=== PATIENT | female | born 1990 | race Caucasian/White ===

== ENCOUNTER 2017-02-04 07:27 | Outpatient (CLI) | payer MEDICAID ==
[~2017-02-04] VITALS: Ht 172.7 cm; Wt 87.7 kg
[~2017-02-04 07:27] MED LIST: ADDERALL30 MG PO; AMOXICILLIN 50500 MG PO; AVAPRO75 MG PO; IMPLANON68 MG ID; LORTAB 5/500 501 TAB PO; MACROBID100 MG PO; NO HOME MEDICATIONS; PRENATAL VITAMI1 TA5 PO
[2017-02-04 07:40] VITALS: BP 124/71; PULSE 104; TEMP 97.7
[2017-02-04] MEDS ORDERED: PRENATAL1 TA7 PO (08:22)
[2017-02-04] MEDS ORDERED: FERROUS SULFATE65 MG PO (08:23)
[2017-02-04 08:41] LABS: PH 6 (5-8); SQUAMOUS EPITHELIAL 0-2 /hpf; URINE APPEARANCE Hazy; URINE BACTERIA None Seen /hpf; URINE BILIRUBIN Negative (NEGATIVE); URINE BLOOD Negative (NEGATIVE); URINE COLOR Yellow; URINE GLUCOSE Negative (NEGATIVE); URINE KETONE Negative (NEGATIVE); URINE UROBILINOGEN Negative (NEGATIVE); URINE WBC 0-2 /hpf
[2017-02-04 09:30] VITALS: BP 128/66; PULSE 94
== END 2017-02-04 09:40 | disposition home or self-care (01) ==
LOC: LDRO 07:27
PROVIDERS: Obstetrics & Gynecology
DX: O47.03 False labor before 37 completed weeks of gestation, third trimester (principal); Z3A.31 31 weeks gestation of pregnancy; Z87.891 Personal history of nicotine dependence

== ENCOUNTER 2017-03-25 15:27 | Inpatient (IN) | payer MEDICAID ==
[2017-03-25] VITALS (19 sets, daily range): BP systolic 104–145; BP diastolic 55–88; PULSE 84–114; TEMP 97.9–98.6
[~2017-03-25] VITALS: Ht 172.7 cm; Wt 95.9 kg
[~2017-03-25 15:27] MED LIST changes: +FERROUS SULFATE65 MG PO; +PRENATAL1 TA7 PO
[2017-03-25 16:43] LABS: BASO % 0.3 % (0.0-2.0); EOS # 0.2 (0.0-0.7); EOS % 1.9 % (0-4.0); GRAN # 6.4 (1.4-6.5); GRAN % 74.1 % (42.2-75.2); HEMATOCRIT 35.1 % (37.0-47.0); HEMOGLOBIN 11.7 g/dl (12.5-16.0); LYMPH # 1.4 (1.2-3.4); LYMPH % 16.3 % (20.0-51.0); MEAN CELL VOLUME 91 fl (80.0-100.0); MEAN CORPUSCULAR HEMOGLOBIN 30 pg (27.0-31.0); MEAN CORPUSCULAR HGB CONC 33 g/dl (33.0-37.0); MEAN PLATELET VOLUME 10.5 fl (7.4-10.4); MONO # 0.6 (0.1-0.6); MONO % 6.9 % (1.7-9.3); PLATELET COUNT 238 K/mm3 (130-400); RED BLOOD COUNT 3.84 M/mm3 (4.10-5.30); REDCELL DISTRIBUTION WIDTH-CV 13.5 % (11.5-14.5); WHITE BLOOD COUNT 8.6 K/mm3 (4.8-10.8)
[2017-03-26 02:00] VITALS: BP 1116/60; PULSE 98; TEMP 98.2
[2017-03-26 10:14] VITALS: BP 122/85; PULSE 94; TEMP 97.8
[2017-03-26 15:52] VITALS: BP 104/69; PULSE 77; TEMP 97.7
[2017-03-26 20:30] VITALS: BP 121/76; PULSE 89; TEMP 98.6
[2017-03-27] MEDS ORDERED: IBU600 MG PO (08:44)
[2017-03-27 09:00] VITALS: BP 127/72; PULSE 94; TEMP 98.1
== END 2017-03-27 12:00 | disposition home or self-care (01) | DRG 775 ==
LOC: LDRO 15:27 → LDR 15:52 → OB 15:52
PROVIDERS: Obstetrics & Gynecology
PROC: 10E0XZZ Delivery of Products of Conception, External Approach (ICD-10-PCS; principal; 2017-03-25)
DX: O42.02 Full-term premature rupture of membranes, onset of labor within 24 hours of rupture (principal); O36.0130 Maternal care for anti-D [Rh] antibodies, third trimester, not applicable or unspecified; Z3A.38 38 weeks gestation of pregnancy; Z37.0 Single live birth
CPT/HCPCS: J2590; J7120

== ENCOUNTER 2018-01-13 14:48 | Emergency (ER) | payer MEDICAID ==
[~2018-01-13] VITALS: Ht 172.7 cm; Wt 86.4 kg
[~2018-01-13 14:48] MED LIST changes: +IBU600 MG PO
[2018-01-13 14:53] VITALS: BP 127/86; TEMP 98
[2018-01-13] MEDS ORDERED: MYDAYIS ER 50 M50 MG PO (14:59)
[2018-01-13] MEDS ORDERED: XANAX 1MG1 MG PO (15:00)
[2018-01-13 15:44] LABS: BASO % 0.4 % (0.0-2.0); EOS # 0.4 (0.0-0.7); EOS % 4.3 % (0-4.0); GRAN # 6.3 (1.4-6.5); GRAN % 69.4 % (42.2-75.2); HEMATOCRIT 41.4 % (37.0-47.0); HEMOGLOBIN 13.8 g/dl (12.5-16.0); LYMPH # 1.8 (1.2-3.4); MEAN CELL VOLUME 93 fl (80.0-100.0); MEAN CORPUSCULAR HEMOGLOBIN 31 pg (27.0-31.0); MEAN CORPUSCULAR HGB CONC 33 g/dl (33.0-37.0); MEAN PLATELET VOLUME 9.7 fl (7.4-10.4); MONO # 0.5 (0.1-0.6); MONO % 5.6 % (1.7-9.3); PLATELET COUNT 244 K/mm3 (130-400); RED BLOOD COUNT 4.44 M/mm3 (4.10-5.30); REDCELL DISTRIBUTION WIDTH-CV 13.7 % (11.5-14.5)
[2018-01-13 15:53] LABS: ACETAMINOPHEN < 10 ug/mL (10-30); ALANINE AMINOTRANSFERASE 26 U/L (9-52); ALBUMIN 4.3 gm/dL (3.5-5.0); ALCOHOL(ethanol),MEDICAL < 10 mg/dL; ALKALINE PHOSPHATASE 59 U/L (50-136); ANION GAP 8 mmol/L (7-16); AST,SGOT 19 U/L (15-37); BILIRUBIN,TOTAL 0.4 mg/dL (0.0-1.0); BLOOD UREA NITROGEN 14 mg/dL (7-17); CALCIUM 8.7 mg/dL (8.4-10.2); CARBON DIOXIDE 25 mmol/L (22-30); CHLORIDE 102 mmol/L (98-107); GLUCOSE 90 mg/dL (74-106); POTASSIUM 4.2 mmol/L (3.4-5.0); SALICYLATE < 1.0 mg/dL; SODIUM 136 mmol/L (137-145); TOTAL PROTEIN 7.5 gm/dL (6.4-8.2)
[2018-01-13 16:20] LABS: TRICYCLIC ANTIDEPRESS URINE NEGATIVE
[2018-01-13 18:45] VITALS: PULSE 96
== END 2018-01-13 18:48 | disposition home or self-care (01) ==
LOC: COL.ER 14:48
PROVIDERS: Emergency Medicine
DX: F32.9 Major depressive disorder, single episode, unspecified (principal); R45.851 Suicidal ideations; F43.10 Post-traumatic stress disorder, unspecified; F98.8 Other specified behavioral and emotional disorders with onset usually occurring in childhood and adolescence; F41.9 Anxiety disorder, unspecified

== ENCOUNTER 2018-05-11 12:49 | Emergency (ER) | payer SELFPAY ==
[~2018-05-11] VITALS: Ht 172.7 cm; Wt 84.1 kg
[~2018-05-11 12:49] MED LIST changes: +MYDAYIS ER 50 M50 MG PO; +XANAX 1MG1 MG PO
[2018-05-11 12:52] VITALS: TEMP 99.3
[2018-05-11] MEDS ORDERED: ADDERALL30 MG PO (13:10)
[2018-05-11] MEDS ORDERED: AMOXICILLIN 50500 MG PO (14:13)
[2018-05-11 14:19] VITALS: BP 114/64; PULSE 118
== END 2018-05-11 14:23 | disposition home or self-care (01) ==
LOC: COL.ER 12:49
DX: J02.0 Streptococcal pharyngitis (principal); F41.9 Anxiety disorder, unspecified; F32.9 Major depressive disorder, single episode, unspecified; F43.10 Post-traumatic stress disorder, unspecified; F98.8 Other specified behavioral and emotional disorders with onset usually occurring in childhood and adolescence; F12.90 Cannabis use, unspecified, uncomplicated; Z87.891 Personal history of nicotine dependence

== ENCOUNTER 2019-03-12 12:20 | Emergency (ER) | payer SELFPAY ==
[~2019-03-12] VITALS: Ht 172.7 cm; Wt 75.0 kg
[2019-03-12 12:49] VITALS: TEMP 97.1
[2019-03-12] MEDS ORDERED: KLONOPIN 1MG1 MG PO (13:37)
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
[2019-03-12] MEDS ORDERED: NIX CREME RINSE60 M1 TP (16:16)
[2019-03-12 16:46] VITALS: BP 108/67; PULSE 87
== END 2019-03-12 16:47 | disposition home or self-care (01) ==
LOC: COL.ER 12:20
DX: M54.2 Cervicalgia (principal); R51 Headache; B85.0 Pediculosis due to Pediculus humanus capitis; Y04.8XXA Assault by other bodily force, initial encounter; Y92.009 Unspecified place in unspecified non-institutional (private) residence as the place of occurrence of the external cause

== ENCOUNTER 2019-05-20 13:01 | Emergency (ER) | payer MEDICAID ==
[~2019-05-20] VITALS: Ht 172.7 cm; Wt 77.3 kg
[~2019-05-20 13:01] MED LIST changes: +KLONOPIN 1MG1 MG PO; +NIX CREME RINSE60 M1 TP
[2019-05-20 13:06] VITALS: TEMP 99.1
[2019-05-20 14:58] LABS: COLLECTION METHOD CLEAN CATCH
[2019-05-20 15:13] LABS: MUCOUS Present /lpf; PH 6 (5-8); URINE APPEARANCE Hazy; URINE BACTERIA None Seen /hpf; URINE BILIRUBIN Negative (NEGATIVE); URINE BLOOD Negative (NEGATIVE); URINE COLOR Yellow; URINE GLUCOSE Negative (NEGATIVE); URINE KETONE Negative (NEGATIVE); URINE LEUKOCYTE ESTERASE 1+ (NEGATIVE); URINE NITRATE Negative (NEGATIVE); URINE PROTEIN(semi-quant) 1+ (NEGATIVE); URINE RBC None Seen /hpf; URINE UROBILINOGEN Negative (NEGATIVE)
[2019-05-20] MEDS ORDERED: NORCO 325 MG-51 TAB PO (15:52)
[2019-05-20] MEDS ORDERED: FLEXERIL 1010 MG/TAB PO (15:52)
[2019-05-20 15:56] VITALS: BP 112/71; PULSE 86
== END 2019-05-20 16:04 | disposition home or self-care (01) ==
LOC: COL.ER 13:01
PROVIDERS: Physician Assistant
DX: S39.012A Strain of muscle, fascia and tendon of lower back, initial encounter (principal); M54.42 Lumbago with sciatica, left side; F32.9 Major depressive disorder, single episode, unspecified; F41.9 Anxiety disorder, unspecified; F17.210 Nicotine dependence, cigarettes, uncomplicated; F12.90 Cannabis use, unspecified, uncomplicated; F43.10 Post-traumatic stress disorder, unspecified; X58.XXXA Exposure to other specified factors, initial encounter
CPT/HCPCS: J1885

== ENCOUNTER 2020-07-20 18:57 | Emergency (ER) | payer MEDICAID ==
[~2020-07-20] VITALS: Ht 172.7 cm; Wt 75.0 kg
[~2020-07-20 18:57] MED LIST changes: +FLEXERIL 1010 MG/TAB PO; +NORCO 325 MG-51 TAB PO
[2020-07-20 19:14] VITALS: TEMP 99.4
[2020-07-20 20:11] LABS: BASO % 0.3 % (0.0-2.0); EOS % 0.1 % (0-4.0); GRAN # 8.5 (1.4-6.5); GRAN % 87.1 % (42.2-75.2); HEMATOCRIT 37.9 % (37.0-47.0); HEMOGLOBIN 12.8 g/dl (12.5-16.0); LYMPH # 0.6 (1.2-3.4); LYMPH % 5.9 % (20.0-51.0); MEAN CELL VOLUME 95 fl (80.0-100.0); MEAN CORPUSCULAR HEMOGLOBIN 32 pg (27.0-31.0); MEAN CORPUSCULAR HGB CONC 34 g/dl (33.0-37.0); MEAN PLATELET VOLUME 9.4 fl (7.4-10.4); MONO # 0.6 (0.1-0.6); MONO % 6.2 % (1.7-9.3); PLATELET COUNT 185 K/mm3 (130-400); RED BLOOD COUNT 3.98 M/mm3 (4.10-5.30); REDCELL DISTRIBUTION WIDTH-CV 13.5 % (11.5-14.5)
[2020-07-20 20:25] LABS: ALBUMIN 4.1 gm/dL (3.5-5.0); BILIRUBIN,TOTAL 0.6 mg/dL (0.0-1.0); CALCIUM 8.8 mg/dL (8.4-10.2); CREATININE, serum 0.69 (0.52-1.25); POTASSIUM 3.5 mmol/L (3.4-5.0); TOTAL PROTEIN 7.5 gm/dL (6.4-8.2)
[2020-07-20 20:36] LABS: C-REACTIVE PROTEIN 17.8 mg/dL (0.0-0.9)
[2020-07-20 20:46] LABS: LIPASE 30 U/L (23-300)
[2020-07-20 20:47] LABS: ALCOHOL(ethanol),MEDICAL < 10 mg/dL
[2020-07-20 21:03] LABS: COLLECTION METHOD CLEAN CATCH
[2020-07-20 21:16] LABS: AMORPHOUS CRYSTAL Present /uL; PH 7 (5-8); SQUAMOUS EPITHELIAL 0-2 /hpf; URINE APPEARANCE Clear; URINE BACTERIA Many /hpf; URINE BILIRUBIN Negative (NEGATIVE); URINE BLOOD 2+ (NEGATIVE); URINE COLOR Yellow; URINE GLUCOSE Negative (NEGATIVE); URINE KETONE 1+ (NEGATIVE); URINE LEUKOCYTE ESTERASE 1+ (NEGATIVE); URINE NITRATE Negative (NEGATIVE); URINE PROTEIN(semi-quant) Negative (NEGATIVE); URINE UROBILINOGEN >=4.0 mg/dL (NEGATIVE)
[2020-07-20] MEDS ORDERED: OMNICEF 300MG300 MG PO (21:51)
[2020-07-20 22:01] VITALS: BP 120/71; PULSE 89
== END 2020-07-20 22:03 | disposition home or self-care (01) ==
LOC: COL.ER 18:57
PROVIDERS: Family Medicine
DX: N12 Tubulo-interstitial nephritis, not specified as acute or chronic (principal); F41.9 Anxiety disorder, unspecified; F17.210 Nicotine dependence, cigarettes, uncomplicated
CPT/HCPCS: J0696; J7120

== ENCOUNTER 2020-10-02 11:53 | Emergency (ER) | payer MEDICAID ==
[~2020-10-02] VITALS: Ht 172.7 cm; Wt 75.0 kg
[~2020-10-02 11:53] MED LIST changes: +OMNICEF 300MG300 MG PO
[2020-10-02 12:11] VITALS: BP 144/92; PULSE 89; TEMP 97.1
== END 2020-10-02 12:25 | disposition left against medical advice (07) ==
LOC: COL.ER 11:53
DX: M54.5 Low back pain (principal); Z53.21 Procedure and treatment not carried out due to patient leaving prior to being seen by health care provider

== ENCOUNTER 2020-11-01 10:50 | Emergency (ER) | payer MEDICAID ==
[~2020-11-01] VITALS: Ht 172.7 cm; Wt 79.5 kg
[2020-11-01 11:26] LABS: COLLECTION METHOD CLEAN CATCH
[2020-11-01 11:30] LABS: BASO % 0.3 % (0.0-2.0); EOS # 0.1 (0.0-0.7); EOS % 0.9 % (0-4.0); GRAN # 5.6 (1.4-6.5); GRAN % 79.7 % (42.2-75.2); HEMATOCRIT 38.7 % (37.0-47.0); LYMPH # 0.9 (1.2-3.4); LYMPH % 12.2 % (20.0-51.0); MEAN CELL VOLUME 99 fl (80.0-100.0); MEAN CORPUSCULAR HEMOGLOBIN 33 pg (27.0-31.0); MEAN CORPUSCULAR HGB CONC 34 g/dl (33.0-37.0); MEAN PLATELET VOLUME 9.4 fl (7.4-10.4); MONO # 0.5 (0.1-0.6); MONO % 6.8 % (1.7-9.3); PLATELET COUNT 206 K/mm3 (130-400); REDCELL DISTRIBUTION WIDTH-CV 13.4 % (11.5-14.5)
[2020-11-01 11:40] LABS: MUCOUS Present /lpf; PH 6 (5-8); URINE APPEARANCE Hazy; URINE BACTERIA Rare /hpf; URINE BILIRUBIN Negative (NEGATIVE); URINE BLOOD 2+ (NEGATIVE); URINE COLOR Yellow; URINE GLUCOSE Negative (NEGATIVE); URINE KETONE Negative (NEGATIVE); URINE LEUKOCYTE ESTERASE 2+ (NEGATIVE); URINE NITRATE Negative (NEGATIVE); URINE PROTEIN(semi-quant) Negative (NEGATIVE); URINE UROBILINOGEN Negative (NEGATIVE)
[2020-11-01 11:42] LABS: ALBUMIN 4.2 gm/dL (3.5-5.0); BILIRUBIN,TOTAL 0.3 mg/dL (0.0-1.0); C-REACTIVE PROTEIN 5.8 mg/dL (0.0-0.9); CALCIUM 8.8 mg/dL (8.4-10.2); CREATININE, serum 0.78 (0.52-1.25); POTASSIUM 3.8 mmol/L (3.4-5.0); TOTAL PROTEIN 7.6 gm/dL (6.4-8.2)
[2020-11-01] MEDS ORDERED: OMNICEF 300MG300 MG PO (12:09)
[2020-11-01] MEDS ORDERED: NORCO 325 MG-51 TAB PO (12:09)
[2020-11-01 12:41] VITALS: BP 122/81; PULSE 98; TEMP 99.4
== END 2020-11-01 12:42 | disposition home or self-care (01) ==
LOC: COL.ER 10:50
PROVIDERS: Physician Assistant
DX: N39.0 Urinary tract infection, site not specified (principal); F17.200 Nicotine dependence, unspecified, uncomplicated; Z20.828 Contact with and (suspected) exposure to other viral communicable diseases; Z32.02 Encounter for pregnancy test, result negative
CPT/HCPCS: J0696; J7030

== ENCOUNTER 2021-10-31 02:28 | Emergency (ER) | payer MEDICAID ==
[~2021-10-31] VITALS: Ht 172.7 cm; Wt 77.3 kg
[2021-10-31 02:37] VITALS: BP 120/75; TEMP 97
[2021-10-31 03:17] LABS: BASO % 0.6 % (0.0-2.0); EOS # 0.1 K/mm3 (0.0-0.7); GRAN # 4.6 K/mm3 (1.4-6.5); GRAN % 63.8 % (42.2-75.2); HEMATOCRIT 35.9 % (37.0-47.0); LYMPH % 27.3 % (20.0-51.0); MEAN CELL VOLUME 96 fl (80.0-100.0); MEAN CORPUSCULAR HEMOGLOBIN 32 pg (27-31); MEAN CORPUSCULAR HGB CONC 33 g/dl (33.0-37.0); MEAN PLATELET VOLUME 9.4 fl (7.4-10.4); MONO # 0.5 K/mm3 (0.1-0.6); MONO % 7.2 % (1.7-9.3); PLATELET COUNT 258 K/mm3 (130-400); RED BLOOD COUNT 3.75 M/mm3 (4.10-5.30); REDCELL DISTRIBUTION WIDTH-CV 13.4 % (11.5-14.5)
[2021-10-31 08:17] VITALS: PULSE 88
== END 2021-10-31 07:19 | disposition home or self-care (01) ==
LOC: COL.ER 02:28
PROVIDERS: Personal Emergency Response Attendant
DX: O20.0 Threatened abortion (principal); O99.341 Other mental disorders complicating pregnancy, first trimester; F90.9 Attention-deficit hyperactivity disorder, unspecified type; F41.9 Anxiety disorder, unspecified; Z3A.01 Less than 8 weeks gestation of pregnancy; Z79.899 Other long term (current) drug therapy; Z87.891 Personal history of nicotine dependence
CPT/HCPCS: J2791

== ENCOUNTER 2022-04-30 08:07 | Emergency (ER) | payer MEDICAID ==
[~2022-04-30] VITALS: Ht 172.7 cm; Wt 107.3 kg
[2022-04-30 08:18] VITALS: TEMP 98.4
[2022-04-30 08:29] LABS: BASO % 0.3 % (0.0-2.0); EOS # 0.1 K/mm3 (0.0-0.7); EOS % 0.5 % (0.0-4.0); GRAN % 82.1 % (42.2-75.2); HEMOGLOBIN 10.8 g/dl (12.5-16.0); LYMPH # 1.1 K/mm3 (1.2-3.4); LYMPH % 9.9 % (20.0-51.0); MEAN CELL VOLUME 92 fl (80.0-100.0); MEAN CORPUSCULAR HEMOGLOBIN 31 pg (27-31); MEAN CORPUSCULAR HGB CONC 33 g/dl (33.0-37.0); MEAN PLATELET VOLUME 9.9 fl (7.4-10.4); MONO # 0.7 K/mm3 (0.1-0.6); MONO % 6.5 % (1.7-9.3); PLATELET COUNT 240 K/mm3 (130-400); RED BLOOD COUNT 3.54 M/mm3 (4.10-5.30); REDCELL DISTRIBUTION WIDTH-CV 13.5 % (11.5-14.5)
[2022-04-30 08:32] LABS: HEMATOCRIT 32.6 % (37.0-47.0)
[2022-04-30 08:47] LABS: COLLECTION METHOD CLEAN CATCH
[2022-04-30 08:49] LABS: ALBUMIN 2.4 gm/dL (3.5-5.0); BILIRUBIN,TOTAL 0.2 mg/dL (0.2-1.2); C-REACTIVE PROTEIN 3.75 mg/dL (0.00-0.50); CALCIUM 8.5 mg/dL (8.4-10.2); CREATININE, serum 0.65 mg/dL (0.57-1.11); TOTAL PROTEIN 6.6 gm/dL (6.2-8.1)
[2022-04-30 08:54] LABS: MUCOUS Present (NOT PRESENT); PH 6 (5-8); URINE APPEARANCE Hazy (CLEAR/HAZY); URINE BACTERIA Occasional /hpf (NONE SEEN); URINE BILIRUBIN Negative (NEGATIVE); URINE BLOOD Negative (NEGATIVE); URINE COLOR Yellow (YELLOW); URINE GLUCOSE Negative (NEGATIVE); URINE KETONE Negative (NEGATIVE); URINE LEUKOCYTE ESTERASE 2+ (NEGATIVE); URINE NITRATE Negative (NEGATIVE); URINE PROTEIN(semi-quant) Negative (NEGATIVE); URINE RBC 0-2 /hpf (0-2); URINE UROBILINOGEN Negative (NEGATIVE)
[2022-04-30] MEDS ORDERED: CEPHALEXIN500 M1 PO (09:53)
--- NOTE | 2022-04-30 10:03 | NUR ---
0939- EFM and TOCO applied to Pt and tracing well. Pt is a G3L2, 32+2. Pt denies VB, LOF, UCs. +FM per Pt. 1003- Category I FHR tracing noted, no UCs noted on monior. FM heard by this RN while at bedside. EFM and TOCO off. ED physician updated on strip.
[2022-04-30] MEDS ORDERED: ZOFRAN ODT4 MG PO (10:39)
[2022-04-30] MEDS ORDERED: NORCO 325 MG-51 TAB PO (10:39)
[2022-04-30 11:26] VITALS: BP 120/73; PULSE 101
== END 2022-04-30 11:26 | disposition home or self-care (01) ==
LOC: COL.ER 08:07
PROVIDERS: Emergency Medicine
DX: O23.43 Unspecified infection of urinary tract in pregnancy, third trimester (principal); N39.0 Urinary tract infection, site not specified; O26.893 Other specified pregnancy related conditions, third trimester; R51.9 Headache, unspecified; Z3A.32 32 weeks gestation of pregnancy; Z20.822 Contact with and (suspected) exposure to COVID-19
CPT/HCPCS: J0696; J2405; J2550; J7030

== ENCOUNTER 2024-03-07 18:20 | Emergency (ER) | payer MEDICAID ==
[~2024-03-07] VITALS: Ht 172.7 cm; Wt 87.7 kg
[~2024-03-07 18:20] MED LIST changes: +CEPHALEXIN500 M1 PO; +MACROBID 1100 MG/CAP PO; +ZOFRAN ODT4 MG PO
[2024-03-07 18:31] VITALS: TEMP 98.7
[2024-03-07] MEDS ORDERED: NS 1,000 ML IV ONE (19:15)
[2024-03-07 20:00] LABS: BASO % 0.3 % (0.0-2.0); EOS # 0.1 K/mm3 (0.0-0.7); EOS % 1.5 % (0.0-4.0); GRAN # 5.1 K/mm3 (1.4-6.5); HEMATOCRIT 39.6 % (37.0-47.0); HEMOGLOBIN 13.5 g/dl (12.5-16.0); LYMPH # 1.3 K/mm3 (1.2-3.4); LYMPH % 18.5 % (20.0-51.0); MEAN CELL VOLUME 99 fl (80.0-100.0); MEAN CORPUSCULAR HEMOGLOBIN 34 pg (27-31); MEAN CORPUSCULAR HGB CONC 34 g/dl (33.0-37.0); MEAN PLATELET VOLUME 9.6 fl (7.4-10.4); MONO # 0.4 K/mm3 (0.1-0.6); MONO % 5.4 % (1.7-9.3); PLATELET COUNT 220 K/mm3 (130-400); RED BLOOD COUNT 3.99 M/mm3 (4.10-5.30); REDCELL DISTRIBUTION WIDTH-CV 14.7 % (11.5-14.5)
[2024-03-07 20:12] LABS: COLLECTION METHOD CLEAN CATCH
[2024-03-07 20:14] LABS: ALBUMIN 3.6 g/dL (3.5-5.0); BILIRUBIN,TOTAL 0.3 mg/dL (0.2-1.2); CALCIUM 9.2 mg/dL (8.4-10.2); CREATININE, serum 0.97 mg/dL (0.57-1.11); POTASSIUM 3.6 mEq/L (3.5-4.5); TOTAL PROTEIN 7.5 g/dl (6.2-8.1)
[2024-03-07 20:19] LABS: PH 7.5 (5.0-8.5); URINE APPEARANCE CLOUDY (CLEAR/HAZY); URINE BLOOD 1+ (NEGATIVE); URINE COLOR YELLOW (YELLOW); URINE GLUCOSE NEGATIVE (NEGATIVE); URINE KETONE TRACE (NEGATIVE); URINE NITRATE NEGATIVE (NEGATIVE); URINE PROTEIN(semi-quant) 1+ (NEGATIVE)
[2024-03-07] MEDS ORDERED: cefTRIAXone 1 G in Water For Injection,Sterile 10 ML IV ONE (20:45)
[2024-03-07] MEDS ORDERED: Ketorolac 15 MG/ML VIAL IV ONE (20:45)
[2024-03-07] MEDS ORDERED: CEPHALEXIN500 M1 PO (21:25)
[2024-03-07 21:50] VITALS: BP 139/98; PULSE 101
== END 2024-03-07 21:50 | disposition home or self-care (01) ==
LOC: COL.ER 18:20
PROVIDERS: Physician Assistant
DX: N39.0 Urinary tract infection, site not specified (principal); F17.200 Nicotine dependence, unspecified, uncomplicated; Z87.448 Personal history of other diseases of urinary system
CPT/HCPCS: J0696; J1885; J7030